=== PATIENT | female | born 2000 | race Caucasian/White ===

== ENCOUNTER 2024-10-28 11:13 | Emergency (ER) | payer MEDICAID, SELFPAY ==
[2024-10-28 11:28] VITALS: BP 129/84; PULSE 95; RESP 18; TEMP 37.2; O2SAT 100; BMI 24.7
--- NOTE | 2024-10-28 11:35 | EKG_ITS ---
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
--- NOTE | 2024-10-28 11:37 | XR_ITS ---
Examination: PA lateral chest 2 views Technique: PA lateral chest 2 views Date and time: October 28, 2024 1147 hrs. Indications: Chest pain beginning 2 days ago. Findings: Normal heart size. Lungs are clear. Osseous structures are intact Impression: No active disease
--- NOTE | 2024-10-28 11:41 | PD.EDRME ---
Rapid Medical Screening Exam RME Arrival date/time: 10/28/24 11:13 24-year-old female presents to the emergency department today for complaints of chest pain Chief Complaint: Chest Pain Time Seen by Provider: 10/28/24 11:21 Vital signs: Vital Signs Temperature 99.0 F 10/28/24 11:28 Pulse Rate 95 10/28/24 11:28 Respiratory Rate 18 10/28/24 11:28 Blood Pressure 129/84 10/28/24 11:28 Pulse Oximetry (%) 100 10/28/24 11:28 Oxygen Delivery Method Room Air 10/28/24 11:28
--- NOTE | 2024-10-28 12:49 | PD.EDCHEST ---
ED Chest Pain RME/HPI General Chief Complaint: Chest Pain Stated Complaint: HURTS WHEN SHE BREATHES Time Seen by Provider: 10/28/24 11:21 Arrival date/time: 10/28/24 11:13 Limitations: no limitations RME / HPI RME / HPI narrative: 10/28/24 11:13 24-year-old female presents to the emergency department today for complaints of chest pain DR. 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 The pain is localized to the left upper chest, described as sharp in quality and moderate in intensity. It is worsened by deep inspiration but not affected by movement. The chest pain is accompanied by mild shortness of breath. The patient reports having experienced similar episodes in the past, which typically resolved spontaneously within a few minutes. However, the pain today persisted longer than usual, prompting ED visit. She denies fever, chills, night sweats, cough, abdominal pain, nausea, vomiting, diarrhea, or urinary symptoms. Related Data Previous Rx's ?Medication ?Instructions ?Recorded dicyclomine 10 mg capsule 10 mg PO TID #20 caps 07/01/18 omeprazole 20 mg capsule,delayed 20 mg PO QDAY #20 caps 07/01/18 release ibuprofen 600 mg tablet 600 mg PO Q6H PRN pain #30 tabs 03/08/21 ondansetron HCl 8 mg tablet 8 mg PO Q8H PRN nausea and 11/01/21 vomiting #30 tabs hydrocodone 5 mg-acetaminophen 325 1 tab PO Q6H PRN pain #7 tabs 11/03/21 mg tablet ciprofloxacin HCl 0.3 % eye drops See Rx Instructions ophthalmic 01/20/24 (eye) .COMPLEX #5 mL Allergies Allergy/AdvReac Type Severity Reaction Status Date / Time No Known Allergies Allergy Verified 11/02/21 10:30 Review of Systems Review of Systems Narrative Review of Systems: GEN: No fever, no chills, no weight loss EYES: No discharge, no visual changes, no pain HEENT: No ear pain, no congestion, no sore throat PULM:+ shortness of breath, no cough, no congestion CV: + chest pain, no dyspnea on exertion, no palpitations GI: No nausea, no vomiting, no diarrhea, no pain, no constipation : No frequency, no urgency and no dysuria MUSC/SKEL No joint pain, no back pain SKIN: No rash NEURO: No weakness, no headache Past Medical History Past Medical History CARDIAC: Negative Cardiac Disorders or Congestive Heart Failure RESPIRATORY: Negative Chronic Obstructive Pulmonary Disease (COPD) or Asthma GENITOURINARY: Negative Renal Disease ENDOCRINE: Negative Diabetes Mellitus Type 1 or Diabetes Mellitus Type 2 HEMATOLOGIC: Negative Sickle Cell Disease Social History SMOKING STATUS: Never smoker SECOND HAND EXPOSURE: No SUBSTANCE USE: does not use ED Exam General Limitations: Present no limitations General appearance: Present alert and in no apparent distress Head Head exam: Present atraumatic, normocephalic and normal inspection Eye Eye exam: Present normal appearance, PERRL and EOMI ENT ENT exam: Present normal exam, normal oropharynx and mucous membranes moist Neck Neck exam: Present normal inspection, full ROM and trachea midline Chest Chest inspection: Present symmetric chest wall rise and other (Left upper costochondral tenderness to palpation 1+. ) Respiratory Respiratory exam: Present normal lung sounds bilaterally Cardiovascular Cardiovascular exam: Present regular rate, normal rhythm and normal heart sounds Abdominal Exam Abdominal exam: Present soft and normal bowel sounds Extremities Exam Extremities exam: Present normal inspection and full ROM Back Exam Back exam: Present normal inspection and full ROM Neurological Exam Neurological exam: Present alert, oriented X3 and CN II-XII intact Psychiatric Psychiatric exam: Present normal affect and normal mood Skin Skin exam: Present warm, dry, intact and normal color Course Course Course Narrative: chest xray ordered to help determine etiology of chest pain. Quality Measures none Orders Category Date Time Status EKG (ED ONLY) *Do not use* NOW Care 10/28/24 11:35 Completed EKG (ED Only) Stat Exams 10/28/24 11:35 Draft XR chest 2V Stat Exams 10/28/24 11:37 Completed CBC Stat Lab 10/28/24 12:22 Completed Comprehensive Metabolic Panel Stat Lab 10/28/24 12:22 Completed HCG,Qualitative Serum Stat Lab 10/28/24 12:22 Completed Troponin I Stat Lab 10/28/24 12:22 Completed Vital Signs Vital signs: Vital Signs Temperature 99.0 F 10/28/24 11:28 Pulse Rate 95 10/28/24 11:28 Respiratory Rate 18 10/28/24 11:28 Blood Pressure 129/84 10/28/24 11:28 Pulse Oximetry (%) 100 10/28/24 11:28 Oxygen Delivery Method Room Air 10/28/24 11:28 Pulse ox is 100% on room air which is adequate. Chest Pain MDM Narrative MDM Narrative:: Thalia Lewis am scribing for and in the presence of Dr. Lal. Patient data External records reviewed:: [facility] previous records (I reviewed ED visit on 01/20/2024 ) Clinical information provided by:: patient Social determinants that could affect healthcare access:: mental health Patient has the following chronic illnesses:: Anxiety How is presenting disease/condition affected by chronic disease/condition?: exacerbated by Evaluation data The following diagnostics were reviewed and interpreted by me:: lab results, radiology exam(s) and EKG tracing(s) (EKG @ 11:37. Normal sinus rhythm, rate 87, no STEMI, W[place] 127ms, QRS 73ms, QT/QTc 327/395ms. ) Lab and/or radiology exams considered but not ordered:: None Interpretation Summary: Ordering Physician: Bhavani CARRILLO)Eris NP Date of Service: 10/28/24 Procedure(s): XR chest 2V Accession Number(s): [id number] cc: Bhavani CARRILLO),Eris VITALE; Dafne Black NP; Aamir Mulligan MD~ Examination: PA lateral chest 2 views Technique: PA lateral chest 2 views Date and time: October 28, 2024 1147 hrs. Indications: Chest pain beginning 2 days ago. Findings: Normal heart size. Lungs are clear. Osseous structures are intact Impression: No active disease Dictated By: Aamir Mulligan MD Signed By: <Electronically signed by Aamir Mulligan MD in OV> 10/28/24 1421 Medications / Prescriptions Medications or Prescriptions considered but not ordered:: None Medication administrations:: None Consultations Consultation(s) initiated? (list below): No Diagnosis Chest Pain Differential Diagnosis: stable angina, atypical chest pain, st elevation myocardial infarction, costochondritis and chest pain Most likely diagnosis given after review of the tests above:: Atypical chest pain Admission Indicated Admission indicated?: not indicated Admission Request Was there a request for admission?: No Disposition Plan Disposition Plan: Discharge Discharge Attestation Discharge Attestation: The patient and all family members were given an opportunity to ask questions and understood the discharge instructions. Discharge instructions specifically effects, indications for sooner follow up or return to the emergency department, and the expected course of current diagnosis. Patient condition: Stable Discharge Plan Plan Patient Disposition: HOME (Self Care) Discharge Disposition comment: Stable Prescriptions/Referrals Prescriptions/Med Rec: No Action omeprazole 20 mg capsule,delayed release(DR/EC) 20 mg PO QDAY Qty: 20 0RF dicyclomine 10 mg capsule 10 mg PO TID Qty: 20 0RF ondansetron HCl 8 mg tablet 8 mg PO Q8H PRN (Reason: nausea and vomiting) Qty: 30 0RF ibuprofen 600 mg tablet 600 mg PO Q6H PRN (Reason: pain) Qty: 30 0RF hydrocodone-acetaminophen 5-325 mg tablet 1 tab PO Q6H MDD 3 PRN (Reason: pain) Qty: 7 0RF ciprofloxacin HCl 0.3 % drops See Rx Instructions .ROUTE .COMPLEX Qty: 5 0RF Rx Instructions: put 1-2 drps in affected eye(s) every 2hr up to 8 times/day x2days; then 4 times/day x5days Referrals: Dafne Black NP [Primary Care Provider] - In 1 week Problem List Clinical Impression: Atypical chest pain Patient/Caregiver Discharge Instructions Education Materials: ED Chest Pain, Noncardiac Additional Instructions: Please follow up with your primary care doctor in the next 24-48hrs for any worsening symptoms return here immediately Print Language: Yemeni Stand Alone Forms: Chanda Award Info., Work/School Release, Patient Portal Info Letter PILY/ANDRE Supervising Physician PILY/ANDRE Supervising Physician: Dr. lal
[2024-10-28 12:50] LABS: Basophils # (Auto) 0.1 Thou/mm3 (0.0-0.2); Basophils % (Auto) 1 % (0-2.5); Eosinophils # (Auto) 0.1 Thou/mm3 (0.0-0.5); Eosinophils % (Auto) 1 % (0-10); Hematocrit 39.5 % (36.0-46.0); Hemoglobin 13.6 g/dL (12.0-16.0); Immature Granulocytes % (Auto) 1 % (0-0); Immature Granulocytes Auto 0.03 Thou/mm3 (0.00-0.00); Lymphocytes # (Auto) 1.4 Thou/mm3 (1.0-4.8); Lymphocytes % (Auto) 23 % (10-50); Mean Corpuscular HGB Conc 34.4 g/dl (31.0-37.0); Mean Corpuscular Hemoglobin 29.8 pg (25.0-35.0); Mean Corpuscular Volume 87 fL (80-100); Monocytes # (Auto) 0.4 Thou/mm3 (0.0-0.8); Monocytes % (Auto) 7 % (0-12); Neutrophils % (Auto) 68 % (37-80); Nucleated Red Blood Cell % 0 /100 WBC (0); Platelet Count 137 Thou/mm3 (140-440); RDW Standard Deviation 40.4 fL (36.4-46.3); Red Blood Count 4.56 Miln/mm3 (4.00-5.20)
[2024-10-28 13:08] LABS: HCG,Qualitative Serum Negative
[2024-10-28 13:13] LABS: Alanine Aminotransferase 18 U/L (10-49); Albumin/Globulin Ratio 2.3 (1.2-2.2); Alkaline Phosphatase 61 U/L (46-116); Anion Gap 10 (7-16); Aspartate Amino Transferase 23 U/L (0-34); BUN/Creatinine Ratio 8 Ratio (12-20); Bilirubin,Total 0.4 mg/dL (0.3-1.2); Blood Urea Nitrogen 7 mg/dL (9-23); Carbon Dioxide 25.9 mMol/L (20.0-31.0); Chloride 101 mMol/L (98-107); Creatinine (Component) 0.9 mg/dL (0.6-1.3); Estimated Creatinine Clearance 87.8 mL/min (>60); Globulin 2.2 gm/dL (2.3-3.5); Glucose 87 mg/dL (74-106); Osmolality,Calculated 270 (275-295); Potassium 3.9 mMol/L (3.4-5.1); Sodium 137 mMol/L (136-145); Total Protein 7.2 gm/dL (5.7-8.2); Troponin I < 0.002 ng/mL (0.0-0.045); eGFR > 60 See Note
[2024-10-28 14:17] VITALS: BP 122/84; PULSE 75; RESP 17; TEMP 36.9; O2SAT 100
--- NOTE | 2024-10-28 14:26 | PD.EDCHEST ---
ED Chest Pain RME/HPI General Chief Complaint: Chest Pain Stated Complaint: HURTS WHEN SHE BREATHES Time Seen by Provider: 10/28/24 11:21 Arrival date/time: 10/28/24 11:13 24-year-old female presents the emergency department today for complaints of chest pain patient has a poor history of anxiety Limitations: no limitations RME / HPI RME / HPI narrative: 10/28/24 11:13 24-year-old female presents to the emergency department today for complaints of chest pain Related Data Previous Rx's ?Medication ?Instructions ?Recorded dicyclomine 10 mg capsule 10 mg PO TID #20 caps 07/01/18 omeprazole 20 mg capsule,delayed 20 mg PO QDAY #20 caps 07/01/18 release ibuprofen 600 mg tablet 600 mg PO Q6H PRN pain #30 tabs 03/08/21 ondansetron HCl 8 mg tablet 8 mg PO Q8H PRN nausea and 11/01/21 vomiting #30 tabs hydrocodone 5 mg-acetaminophen 325 1 tab PO Q6H PRN pain #7 tabs 11/03/21 mg tablet ciprofloxacin HCl 0.3 % eye drops See Rx Instructions ophthalmic 01/20/24 (eye) .COMPLEX #5 mL Allergies Allergy/AdvReac Type Severity Reaction Status Date / Time No Known Allergies Allergy Verified 11/02/21 10:30 Review of Systems Review of Systems Systems Reviewed: All systems reviewed, normal except as documented Constitutional Constitutional: Reports system reviewed and no additional complaints, except as documented, Denies fever(s) and Denies headache(s) Eyes Eyes: Reports system reviewed and no additional complaints, except as documented and Denies blurry vision ENT Ears, Nose, Mouth, and Throat: Reports system reviewed and no additional complaints, except as documented, Denies headache(s), Denies nasal congestion and Denies nasal discharge Cardiovascular Cardiovascular: Reports system reviewed and no additional complaints, except as documented, Reports chest pain and Denies dyspnea Respiratory Respiratory: Reports system reviewed and no additional complaints, except as documented, Denies chest congestion, Denies cough and Denies dyspnea Gastrointestinal Gastrointestinal: Reports system reviewed and no additional complaints, except as documented and Denies abdominal pain Integumentary/Breasts Skin/Breast: Reports system reviewed and no additional complaints, except as documented and Denies rash Neurologic Neurologic: Reports system reviewed and no additional complaints, except as documented, Reports as per HPI and Denies headache(s) Psychiatric Psychiatric: Reports system reviewed and no additional complaints, except as documented and Reports anxiety Past Medical History Past Medical History CARDIAC: Negative Cardiac Disorders or Congestive Heart Failure RESPIRATORY: Negative Chronic Obstructive Pulmonary Disease (COPD) or Asthma GENITOURINARY: Negative Renal Disease ENDOCRINE: Negative Diabetes Mellitus Type 1 or Diabetes Mellitus Type 2 HEMATOLOGIC: Negative Sickle Cell Disease Social History SMOKING STATUS: Never smoker SECOND HAND EXPOSURE: No SUBSTANCE USE: does not use ED Exam General Limitations: Present no limitations General appearance: Present alert and in no apparent distress Head Head exam: Present atraumatic, normocephalic and normal inspection Eye Eye exam: Present normal appearance, PERRL and EOMI; Absent conjunctival injection ENT ENT exam: Present normal exam, normal oropharynx and mucous membranes moist Neck Neck exam: Present normal inspection, full ROM and trachea midline Chest Chest inspection: Present normal inspection and symmetric chest wall rise; Absent tenderness Respiratory Respiratory exam: Present normal lung sounds bilaterally; Absent respiratory distress, wheezes, stridor, accessory muscle use or prolonged expiratory phase Cardiovascular Cardiovascular exam: Present regular rate, normal rhythm and normal heart sounds Abdominal Exam Abdominal exam: Present soft and normal bowel sounds; Absent distention, tenderness, guarding, rebound or rigidity Extremities Exam Extremities exam: Present normal inspection and full ROM Back Exam Back exam: Present normal inspection and full ROM Neurological Exam Neurological exam: Present alert, oriented X3 and CN II-XII intact Psychiatric Psychiatric exam: Present normal affect and normal mood Skin Skin exam: Present warm, dry, intact and normal color Course Quality Measures none Orders Category Date Time Status EKG (ED ONLY) *Do not use* NOW Care 10/28/24 11:35 Completed EKG (ED Only) Stat Exams 10/28/24 11:35 Draft XR chest 2V Stat Exams 10/28/24 11:37 Completed CBC Stat Lab 10/28/24 12:22 Completed Comprehensive Metabolic Panel Stat Lab 10/28/24 12:22 Completed HCG,Qualitative Serum Stat Lab 10/28/24 12:22 Completed Troponin I Stat Lab 10/28/24 12:22 Completed Vital Signs Vital signs: Vital Signs Temperature 99.0 F 10/28/24 11:28 Pulse Rate 95 10/28/24 11:28 Respiratory Rate 18 10/28/24 11:28 Blood Pressure 129/84 10/28/24 11:28 Pulse Oximetry (%) 100 10/28/24 11:28 Oxygen Delivery Method Room Air 10/28/24 11:28 O2 saturation 1% on room air within normal limits Procedures -ED EKG Interpretation #1: Date of EK10/28/24 Time of EK:37 Rate: 87 Interpretation: Interpreted by me EKG Impression: Normal sinus rhythm, No acute ST-T changes, No ectopy, No ischemic changes, Normal QRS, Normal intervals and Normal axis Chest Pain MDM Narrative MDM Narrative:: 24-year-old female presents the emergency department today for complaints of chest pain patient has a poor history of anxiety On exam patient well-appearing patient does not appear toxic no acute distress Patient reports no significant medical problems other than anxiety Lab work and imaging obtained no acute emergent findings noted EKG obtained no acute emergent findings noted Patient discharged home in no distress to follow-up with primary care doctor in the next 24 to 48 hours and for any worsening symptoms to return to the ER immediately Patient data External records reviewed:: [facility] previous records Clinical information provided by:: patient Social determinants that could affect healthcare access:: none Patient has the following chronic illnesses:: None How is presenting disease/condition affected by chronic disease/condition?: no chronic disease Evaluation data The following diagnostics were reviewed and interpreted by me:: lab results, radiology exam(s) and EKG tracing(s) Lab and/or radiology exams considered but not ordered:: Labs, radiology, EKG obtained Interpretation Summary: Reviewed by me Medications / Prescriptions Medications or Prescriptions considered but not ordered:: No meds Medication administrations:: No Meds Consultations Consultation(s) initiated? (list below): No Diagnosis Chest Pain Differential Diagnosis: fracture of rib, pneumothorax, costochondritis and chest pain Most likely diagnosis given after review of the tests above:: Chest pain Admission Indicated Admission indicated?: not indicated Admission Request Was there a request for admission?: No Disposition Plan Disposition Plan: Discharge Discharge Attestation Discharge Attestation: The patient and all family members were given an opportunity to ask questions and understood the discharge instructions. Discharge instructions specifically effects, indications for sooner follow up or return to the emergency department, and the expected course of current diagnosis. Patient condition: Stable Discharge Plan Plan Patient Disposition: HOME (Self Care) Discharge Disposition comment: Stable Prescriptions/Referrals Prescriptions/Med Rec: No Action omeprazole 20 mg capsule,delayed release(DR/EC) 20 mg PO QDAY Qty: 20 0RF dicyclomine 10 mg capsule 10 mg PO TID Qty: 20 0RF ondansetron HCl 8 mg tablet 8 mg PO Q8H PRN (Reason: nausea and vomiting) Qty: 30 0RF ibuprofen 600 mg tablet 600 mg PO Q6H PRN (Reason: pain) Qty: 30 0RF hydrocodone-acetaminophen 5-325 mg tablet 1 tab PO Q6H MDD 3 PRN (Reason: pain) Qty: 7 0RF ciprofloxacin HCl 0.3 % drops See Rx Instructions .ROUTE .COMPLEX Qty: 5 0RF Rx Instructions: put 1-2 drps in affected eye(s) every 2hr up to 8 times/day x2days; then 4 times/day x5days Referrals: Dafne Black NP [Primary Care Provider] - In 1 week Problem List Clinical Impression: Atypical chest pain Patient/Caregiver Discharge Instructions Education Materials: ED Chest Pain, Noncardiac Additional Instructions: Please follow up with your primary care doctor in the next 24-48hrs for any worsening symptoms return here immediately Print Language: Wallisian Stand Alone Forms: Chanda Award Info., Work/School Release, Patient Portal Info Letter PA/MATHEMATICS IMPROVEMENT TEACHER Supervising Physician PA/ANDRE Supervising Physician: Dr. manuel
== END 2024-10-28 14:33 | disposition home or self-care (01) ==
PROVIDERS: Nurse Practitioner Primary Care; Emergency Provider Family Medicine; PCP Nurse Practitioner Family
DX: R07.89 Other chest pain (principal); F41.9 Anxiety disorder, unspecified
CPT/HCPCS: 36415; 71046; 80053; 84484; 84703; 85025; 93005; 99283

== ENCOUNTER → 2025-03-21 | Outpatient (CLI) | payer MEDICAID, SELFPAY ==
--- NOTE | 2025-03-21 09:02 | XR_ITS ---
Examination: Right hip AP, lateral, AP pelvis 3 views Technique: Hip AP lateral, AP pelvis, 3 views Exam date and time: March 21, 2025, 0912 hours INDICATIONS: Right hip pain 7 months FINDINGS: Normal bone density. No hip fracture or dislocation. No arthritic change. Left hip bones of the pelvis intact IMPRESSION: Negative for osseous abnormality.
--- NOTE | 2025-03-21 09:02 | XR_ITS ---
Examination: Lumbar spine, 5 views Technique: Lumbar spine AP, lateral, coned lateral lower lumbar spine, bilateral obliques 5 views Exam date and time: March 21, 2025, 0912 hours INDICATIONS: Lower back pain 7 months FINDINGS: Normal bone density. No significant facet arthropathy. Intact pedicles. No lumbar fracture. No lumbar significant disc narrowing. No spondylolisthesis. IMPRESSION: No lumbar fracture or arthritic change
== END | disposition home or self-care (01) ==
PROVIDERS: PCP Nurse Practitioner Family; Referring Provider Family Medicine; Visit Provider Family Medicine
DX: M25.551 Pain in right hip (principal); M54.50 Low back pain, unspecified
CPT/HCPCS: 72110; 73502